=== PATIENT | female | born 1995 | race Caucasian/White ===

== ENCOUNTER 2021-07-10 22:02 | Emergency (ER) | payer OTHER ==
[2021-07-10] MEDS ORDERED: TYLENOL EXTRA STRENGTH 500 MG PO PRN (22:35)
--- NOTE | 2021-07-10 22:36 | ERPHSYRPT ---
- History of Present Illness Source: patient Exam Limitations: no limitations Patient Subjective Stated Complaint: pt states she has a new cough today, fever of 100.6 at home, body aches and pain, and nausea and vomiting. pain in her lt side radiating to lt posterior shoulder. Triage Nursing Assessment: pt alert and oriented, answers questions approp. pt ambulatory with steady gait noted. respirations nonlabored with lungs cta. skin warm and dry. occasional hacking coughnoted. Physician History: 26 yo wf w coryza/fever/N/V/KINNEY/myalgias/arthralgias x 1day. She denies cough/diarrhea and is not vaccinated against Covid19. Timing/Duration: today Cough Quality/Degree: no cough Possible Cause: no prior episodes Modifying Factors: Improves With: coughing, deep breath Associated Symptoms: fever, chills, chest pain/soreness, headache, muscle aches, nasal congestion, nasal drainage, No cough, No dizziness, No earache, No facial pain, No lightheadedness, No sinus infection, No sore throat, No wheezing Allergies/Adverse Reactions: No Known Drug Allergies Allergy (Verified 07/10/21 22:35) Home Medications: Aripiprazole 10 mg [Abilify 10 MG] 0 mg PO DAILY 07/10/21 [History] Hx Tetanus, Diphtheria Vaccination/Date Given: Yes Hx Influenza Vaccination/Date Given: No Hx Pneumococcal Vaccination/Date Given: No Immunizations Up to Date: Yes Travel Risk - International Travel Have you traveled outside of the country in past 3 weeks: No - Coronavirus Screening Are you exhibiting any of the following symptoms?: Yes Symptoms: Fever, Cough: New Onset, Shortness of Breath, Vomiting/Diarrhea, Headaches/Body Aches/Fatigue - Vaccine Status Have you recieved a Covid-19 vaccination: No - Review of Systems Constitutional: No Symptoms, Fever, Chills Eyes: No Symptoms Ears, Nose, & Throat: No Symptoms, Nose Pain, Nose Congestion, Nose Discharge Respiratory: No Symptoms, Dyspnea Cardiac: No Symptoms Abdominal/Gastrointestinal: No Symptoms, Nausea, Vomiting, Diarrhea Genitourinary Symptoms: No Symptoms Musculoskeletal: No Symptoms, Arthralgias, Myalgias Skin: No Symptoms Neurological: No Symptoms, Headache Psychological: No Symptoms Endocrine: No Symptoms Hematologic/Lymphatic: No Symptoms Immunological/Allergic: No Symptoms - Past Medical History Pertinent Past Medical History: Yes Psycho-Social History: Bipolar - Past Surgical History Past Surgical History: Yes Musculoskeletal: Orthopedic Surgery Female Surgical History: Tubal Ligation Other Surgical History: lt elbow- fx - Social History Smoking Status: Never smoker Exposure to second hand smoke: No Drug Use: none Patient Lives Alone: No Significant Family History: no pertinent family hx - Female History Hx Last Menstrual Period: unsure Hx Now: No (tubal) - Nursing Vital Signs Nursing Vital Signs: Initial Vital Signs Temperature 100.5 F 07/10/21 22:09 Pulse Rate 126 H 07/10/21 22:09 Respiratory Rate 16 07/10/21 22:09 Blood Pressure 143/100 07/10/21 22:09 O2 Sat by Pulse Oximetry 98 07/10/21 22:09 Pain Scale Pain Intensity 6 Febrile/Tachy/hypertensive - Physical Exam General Appearance: no apparent distress Eye Exam: PERRL/EOMI, eyes nml inspection Ears, Nose, Throat Exam: normal ENT inspection, TMs normal, pharynx normal, moist mucous membranes Neck Exam: normal inspection, non-tender, supple, full range of motion, No meningismus, No mass, No Brudzinski, No Kernig's Respiratory Exam: normal breath sounds, lungs clear, airway intact, No respiratory distress Cardiovascular Exam: tachycardia, capillary refill <2 sec, No murmur Gastrointestinal/Abdomen Exam: soft, normal bowel sounds, No tenderness Back Exam: normal inspection, normal range of motion, No CVA tenderness, No vertebral tenderness Extremity Exam: normal inspection, normal range of motion Neurologic Exam: alert, oriented x 3, cooperative, black puller II-XII nml as tested, normal mood/affect, nml cerebellar function, nml station & gait, sensation nml, No motor deficits, No sensory deficit Skin Exam: normal color, warm, dry Lymphatic Exam: No adenopathy SpO2 Interpretation: normal SpO2: 98 O2 Delivery: Room Air - Course Nursing assessment & vital signs reviewed: Yes Ordered Tests: Medication Summary Discontinued Medications Generic Name Dose Route Start Last Admin Trade Name Freq PRN Reason Stop Dose Admin Acetaminophen 1,000 mg 07/10/21 22:35 07/10/21 22:47 Acetaminophen 500 Mg Tablet PO 08/09/21 22:34 1,000 mg Q4H PRN PRN Administration HEADACHE Acetaminophen Confirm 07/10/21 22:46 Acetaminophen 500 Mg Tablet Administered 07/10/21 22:47 Dose 1,000 mg .ROUTE .STK-MED ONE Ketorolac Tromethamine 60 mg 07/11/21 00:07 07/11/21 00:18 Ketorolac Tromethamine 30 Mg/Ml Inj IM 07/11/21 00:08 60 mg STAT ONE Administration Ketorolac Tromethamine Confirm 07/11/21 00:16 Ketorolac Tromethamine 30 Mg/Ml Inj Administered 07/11/21 00:17 Dose 60 mg .ROUTE .STK-MED ONE Lab/Rad Data: Laboratory Results 07/10/21 Range/Units 22:54 Influenza Type A Ag NEGATIVE (NEGATIVE) Influenza Type B Ag NEGATIVE (NEGATIVE) RSV (PCR) NEGATIVE (Negative) SARS-CoV-2 (PCR) POSITIVE A (NEGATIVE) - Progress Progress: improved Progress Note: 07/11/21 00:08 60mg IM Toradol Counseled pt/family regarding: lab results, diagnosis, need for follow-up - Departure Departure Disposition: Home Clinical Impression: COVID-19 Condition: Stable Critical Care Time: No Referrals: DOCTOR,NO FAMILY [Primary Care Provider] - Follow up/PCP as directed Instructions: Coronavirus Disease 2019 (COVID-19) (DC) Additional Instructions: Rest/Fluids/Motrin/Tylenol
[2021-07-10] MEDS ORDERED: TYLENOL EXTRA STRENGTH 500 MG ONE (22:46)
[2021-07-10 23:35] LABS: INFLUENZA A NEGATIVE (NEGATIVE); INFLUENZA B NEGATIVE (NEGATIVE); RESPIRATORY SYNCTIAL VIRUS NEGATIVE (Negative)
[2021-07-11 00:04] LABS: SARS-CoV-2 Xpert Express POSITIVE (NEGATIVE)
[2021-07-11] MEDS ORDERED: TORAdol 30 mg Injection IM ONE (00:07)
[2021-07-11] MEDS ORDERED: TORAdol 30 mg Injection ONE (00:16)
[2021-07-11 00:40] VITALS: BP 102/67; PULSE 65
[2021-07-11 01:24] VITALS: O2SAT 98
== END 2021-07-11 00:40 | disposition home or self-care (01) ==
LOC: ED 22:02
DX: U07.1 COVID-19 (principal); R50.9 Fever, unspecified; R11.2 Nausea with vomiting, unspecified; R51.9 Headache, unspecified; M79.10 Myalgia, unspecified site
CPT/HCPCS: 0241U; 96372; 99284; J1885; A9270-GY